=== PATIENT | male | born 1980 | race Caucasian/White ===

== ENCOUNTER 2016-09-17 14:43 | Inpatient (IN) | payer MEDICARE, OTHER ==
--- NOTE | ~2016-09-17 | HP ---
Unit #: [id number] #: [id number] Patient: GEORGE CARBALLO [id number] [place] [address] [id number] I MR#: [id number] NAME: GEORGE CARBALLO. ROOM: P184 Age: 36 Sex: M Admission Date: 09/17/2016 : 1980 Attending Physician: George Norwood M.D. Admitting Physician: George Norwood M.D. Primary Care Physician: Chin Garcia M.D. HISTORY AND PHYSICAL HISTORY OF PRESENT ILLNESS George is a 36-year-old male, admitted to [facility] because of his polysubstance abuse which includes benzodiazepines and IV heroin. PAST MEDICAL HISTORY 1. Long history of illicit substance abuse to include IV heroin and benzodiazepines. 2. History of withdrawal seizures. 3. History of MRSA. 4. High blood pressure PAST SURGICAL HISTORY 1. Tonsillectomy and adenoidectomy. 2. Extensive right hand and arm following an injury. 3. I and D of an abscess along an IV drug site. ALLERGIES IVP dye. SOCIAL HISTORY He smokes one pack per day. Drinks alcohol rarely, admits to a long history of illicit substance abuse to include benzodiazepines and IV heroin. FAMILY HISTORY Medically noncontributory. REVIEW OF SYSTEMS CONSTITUTIONAL: No fever or chills. HEENT: Denies any sore throat, ear pain or runny nose. CARDIOVASCULAR: Denies chest pain, irregular heart rhythm or palpitations. CHEST: Denies shortness of breath or cough. No hemoptysis. GASTROINTESTINAL: Denies nausea, vomiting, diarrhea or chronic constipation. ENDOCRINE: Denies history of increased thirst or urination. No recent significant weight loss or gain. GENITOURINARY: Denies dysuria, frequency, or hematuria. SKIN: Denies any rashes. HEMATOLOGIC: Denies history of increased bleeding or bruising. MUSCULOSKELETAL: Denies any hot, swollen joints. No generalized muscle pain. NEUROLOGIC: Denies problems with vision or speech. No frequent, severe headaches. No numbness, tingling or weakness in any extremities. Denies Unit #: [id number] #: [id number] Patient: GEORGE CARBALLO loss of bladder or bowel control. CURRENT MEDICATIONS Detox protocol. PHYSICAL EXAMINATION GENERAL: Alert, well-nourished, no apparent distress. VITAL SIGNS: Blood pressure 140/80, heart rate 80, respirations 16, and temperature 98.6. WEIGHT: 200 pounds. HEIGHT: 5 feet 11 inches. SKIN: Warm and dry without rash or lesion. HEENT: Normocephalic. TMs not viewed. Oral and nasal passages clear. Conjunctivae clear. PERRLA. EOMs intact. NECK: Supple without lymphadenopathy or thyromegaly. HEART: Regular rate and rhythm without murmur. LUNGS: Clear. ABDOMEN: Soft, nontender. : Not done. EXTREMITIES: No evidence of cyanosis, clubbing or edema. Moves all without focal deficit. NEUROLOGICAL: Grossly within normal limits. Cranial Nerves: II: Visual pozo are intact. III, IV AND : Extraocular movements are intact. Pupils are equal, round and reactive to light. V: Facial sensation is grossly normal. VII: Facial movements and expression are normal. VIII: Auditory acuity grossly intact. IX, X: Uvula is midline. Phonation is normal. XI: Patient shrugs shoulders and turns head normally. XII: Tongue protrudes in the midline. Sensory and Motor Function: Sensory and motor sensation is grossly normal. Motor: moves all extremities well. Coordination: Gait is normal. Deep Tendon Reflexes: Intact. IMPRESSION Psychiatric admission. RECOMMENDATIONS Psychiatric, per psychiatrist. MEDICAL I see no contraindications to participating in facility's activities. MEDICAL PROGNOSIS Good. MEDICAL CONDITION Stable. Dictated by... Brunilda Elliott P.A.-C. for Katie Summers/vero TD: 09/18/2016 07:00 JOB #: [id number] Unit #: [id number] #: [id number] Patient: GEORGE CARBALLO HISTORY AND PHYSICAL Page 1 of 1 X Brunilda Elliott HISTORY AND PHYSICAL
--- NOTE | ~2016-09-17 | PN ---
Unit #: [id number] #: [id number] Patient: GEORGE CARBALLO [id number] [facility] [address] [place] [address] [id number] I MR#: [id number] NAME: GEORGE CARBALLO. ROOM: P184 Age: 36 Sex: M Admission Date: 09/17/2016 : 1980 Attending Physician: George Norwood M.D. Admitting Physician: George Norwood M.D. Primary Care Physician: Chin Garcia M.D. [facility] PROGRESS NOTES DATE 09/19/2016 SUBJECTIVE UPDATE This is a 36-year-old white male with longstanding history of polysubstance dependence with ongoing issues of withdrawal. The patient continues to report extremely poor sleep, aches and pains, restless legs, twitching, tremors in his hands, and now he is complaining of diarrhea and vomiting. Her vital signs appeared fairly stable today. The patient was notably diaphoretic and grimacing through much of our conversation. The patient seems to still be fairly isolative to himself per staff report. No SI or issues of that nature yet. MENTAL STATUS EXAMINATION General Appearance: This is a limitedly groomed white male who appears older than stated age. Positive tremors and diaphoresis as noted. Fairly unkempt. Speech was clear and coherent but brief. Mood was dysphoric with a congruent affect. Thought process and content were fairly organized and linear. No overt evidence of psychosis. The patient denied any active SI or HI. The patient's memory was grossly intact. Associations were normal. Cognitive functioning was at baseline. He was alert and oriented x4. Insight and judgment limited. RECOMMENDATIONS We will continue the patient's admission for safety and stabilization for ongoing issues with detox (1) __ symptoms as noted above. The patient tolerating detox protocol well, simply needs more time for best effect, especially given the considerable dangerousness of his Xanax use as well as heroin complications. We will monitor, and disposition plan is ongoing. Dictated by... George Norwood M.D. Enedina TD: 09/19/2016 11:31 JOB #: [id number] Unit #: [id number] #: [id number] Patient: GEORGE CARBALLO PROGRESS NOTES Page 1 of 1 X George Norwood MD PROGRESS NOTE
--- NOTE | ~2016-09-17 | PA ---
Unit #: [id number] #: [id number] Patient: GEORGE CARBALLO [id number] [place] [address] [id number] I MR#: [id number] NAME: GEORGE CARBALLO. ROOM: P184 Age: 36 Sex: M Admission Date: 09/17/2016 : 1980 Date of Assessment: Attending Physician: George Norwood M.D. Admitting Physician: George Norwood M.D. Primary Care Physician: Chin Garcia M.D. PSYCHIATRIC ASSESSMENT LOCATION [facility], room #184, bed #1. DATE OF SERVICE 09/18/2016. INFORMANT The patient and chart both seem fairly reliable. CHIEF COMPLAINT "I need to detox." HISTORY OF PRESENT ILLNESS This is a 36-year-old white male with longstanding history of 5 plus years of daily constant IV heroin and Xanax use. The patient was vague about amounts, but he reports that it was significant every day. The heroin form apparently is IV. He says he has been through issues in terms of with withdrawal seizures in the past, but he was vague about last time happened were ever receiving medical care for. He denies ever being intubated for substance abuse either intoxication or its withdrawal. The patient denied ever being in overt treatment for detox before now. The patient could not give a specific reason for why he was seeking it. He seems fatigued and reported feeling poorly, and seen lessen agitated in evaluation process. He did able to complain of aches and pains, poor energy, headache, upset stomach, beyond that was limited in his cooperation. He did deny any active SI or thoughts of harming himself. He has been compliant per staff in terms of medications thus far. The patient complained additionally of poor sleep last night, even with the trazodone. PAST PSYCHIATRIC HISTORY According to the patient, no overt treatment inpatient around before. No history of SI, HI, or any psychosis. FAMILY HISTORY Significant for bipolar disorder in various members. He did not give more information about symptoms and/or treatments. He is unclear about chemical dependency in the family given this issue. SOCIAL HISTORY The patient is single, living at home currently with his father, has some after high-school training. He is unemployed at this time, has 3 children. Unit #: [id number] #: [id number] Patient: GEORGE CARBALLO MEDICAL HISTORY Nothing acute or chronic beyond history of withdrawal seizures per the patient's report. MEDICATION HISTORY None. ALLERGIES Include iodine contrast media. SUBSTANCE ABUSE HISTORY As noted above, no previous overt treatment according to the patient. Complications as noted above. The patient denied any substances in terms of an alcohol, bath salts spice, or other synthetics. MENTAL STATUS EXAMINATION General appearance; this is a limitedly groomed white male, appears older than stated age. Somewhat unkempt. No eye contact. Limited cooperation. Speech was clear, but brief. Mood was somewhat irritable with a congruent affect. Thought process and content were grossly organized and linear. No overt evidence of psychosis. No SI, no HI reported at this time. The patient's memory was generally intact, during the evaluation is ultimately limited. Alert and oriented x4. Cognitive function seems to be at baseline. Associations were normal. Insight and judgment are poor. ASSETS AND LIABILITIES Assets include support of his father. Liabilities include an appointments, continued substance abuse. No previous exposure to treatment. DIAGNOSES 1. Opioid dependency with withdrawal. 2. Sedative hypnotic dependency with withdrawal. PSYCHIATRIC PLAN Psychiatric plan is to continue the patient's admission for safety and stabilization, appropriate detox is in place for both opioids and benzodiazepines. The patient to be monitored carefully in controlled environment. The treatment goals being resolution of all symptoms in a manner that would be benefit the patient in the most safe appropriate manner. Discharge planning will have resolution of the symptoms in a controlled fashion with outpatient referral to community resources. Most likely the patient is not applicable for residential treatment. Estimated length of stay approximately 4 days depending on the patient's progress and response to treatment. Dictated by... George Norwood M.D. CONCEPCION/lynn TD: 09/18/2016 16:50 JOB #: [id number] Unit #: [id number] #: [id number] Patient: GEORGE CARBALLO PSYCHIATRIC ASSESSMENT Page 1 of 1 X George Norwood MD X PSYCHIATRIC ASSESSMENT
--- NOTE | ~2016-09-17 | CO ---
Unit #: [id number] #: [id number] Patient: GEORGE CARBALLO [id number] [place] [address] [id number] I MR#: [id number] NAME: GEORGE CARBALLO. ROOM: P184 Age: 36 Sex: M Admission Date: 09/17/2016 : 1980 Attending Physician: George Norwood M.D. Primary Care Physician: Chin Garcia M.D. CONSULTATION REPORT SUBJECTIVE George is a 36-year-old, admitted to [facility] because of his polysubstance abuse. In addition, he reported that he has a history of withdrawal seizure. Nursing staff reports no seizure activity during this admission. ASSESSMENT History of withdrawal seizures. PLAN The patient is currently on detox protocol, which will cover for withdrawal seizures. Dictated by... Brunilda Elliott P.A.-C. for Katie Summers/lynn TD: 09/19/2016 01:36 JOB #: [id number] CONSULTATION REPORT Page 1 of 1 X Brunilda Elliott CONSULTATION REPORT
--- NOTE | ~2016-09-17 | PN ---
Unit #: [id number] #: [id number] Patient: GEORGE CARBALLO [id number] [place] [address] [id number] I MR#: [id number] NAME: GEORGE CARBALLO. ROOM: P180 Age: 36 Sex: M Admission Date: 09/17/2016 : 1980 Attending Physician: George Norwood M.D. Admitting Physician: George Norwood M.D. Primary Care Physician: Chin Garcia M.D. [facility] PROGRESS NOTES DATE 09/20/2016 LOCATION [facility], room #184, bed #1. SUBJECTIVE UPDATE This is a 36-year-old white male with ongoing issues of significant dependency on accommodation of opiates and benzodiazepines. Patient is reporting feeling even worse today, but staff reports that he has been hallucinating overnight, restless, irritable but redirectable. Patient says he has been noticing that he is hallucinating. He says he has never had the problem happen before. The patient said he talked about seeing somebody in the room that he knew was not there. Patient seemed to be having it currently. He does report still feeling trouble in terms of aches and pains, headaches, restlessness and of course the hallucinations and mood instability, as well as occasional disorientation. He has been compliant with care per staff and a discussion was had about the need for continued compliance with treatment. Patient's vital signs are still fluctuating. MENTAL STATUS EXAM General appearance: This is a limitedly groomed white male who appears older than stated age. Poor eye contact today, possible positive for diaphoresis and tremor again. Speech was clear but brief. Mood was dysphoric, irritable with a congruent affect. Thought process and content were grossly organized and linear. No overt evidence of psychosis. At this moment positive for hallucinations overnight. Patient memory was fairly intact. Cognitive function seems to be fluctuating but baseline at the moment. Associations were normal. Alert and oriented x4. Insight and judgment is limited. ASSESSMENT AND RECOMMENDATIONS We will continue the patient's admission for ongoing issues with detox, with symptoms as noted above. Strong concern for benzodiazepines, (1) opiates with hallucinations and confusion. Staff has been encouraged to utilize Ativan as per protocol dictates. Will cue to monitor progress is ongoing. Dictated by... Unit #: [id number] #: [id number] Patient: GEORGE CARBALLO M.D. SB/halima TD: 09/20/2016 18:46 JOB #: [id number] [facility] PROGRESS NOTES Page 1 of 1 X George Norwood MD X PROGRESS NOTE
--- NOTE | ~2016-09-17 | DS ---
Unit #: [id number] #: [id number] Patient: GEORGE CARBALLO [id number] [place] [address] [id number] I MR#: [id number] NAME: GEORGE CARBALLO. ROOM: P180 Age: 36 Sex: M Admission Date: 09/17/2016 : 1980 Discharge Date: 09/21/2016 Attending Physician: George Norwood M.D. Primary Care Physician: Chin Garcia M.D. DISCHARGE SUMMARY REASON FOR ADMISSION Benzodiazepine and opiate dependency with detox for each. DIAGNOSTIC STUDIES Pertinent laboratory data, the patient had routine blood work which included a CMP, that was grossly within normal parameters, AST slightly low at 9. The patient had alcohol level that was negative. CBC that was within normal acceptable parameters. Urinalysis was ordered but never obtained because of patient cooperation issues. HOSPITAL COURSE The patient was admitted for safety and stabilization for ongoing issues with opiates and benzodiazepine dependency, placed on appropriate protocols for both. The patient reported escalating symptoms of aches, pains, tremors, diaphoresis, elevated blood pressure and pulse which all accumulate in him having acute confusion delirium, hallucinations, and seizure. On the , the patient's symptoms escalated to this point and he was felt appropriate to be set out for medical evaluation and was sent to [facility] by EMS and that happened at 2:30 on 09/20, unfortunately, shortly after arriving there the patient went AWOL despite being noted to be mentally impaired, delirious and hallucinating. Apparently, [facility] personnel notified proper authorities but the patient was not returned or found in 24-hours. Following that it was felt appropriate that the patient be discharged from overall care here at this hospital since he had not been able to be found and returned to care. Proper follow up is unable to be established and overall, the patient seemed to be deteriorating and that is why he was sent for medical clearance given his escalation of his sedative-hypnotic dependency severity. There was no evidence of SI or HI but the patient was becoming increasingly agitated with his confusion and that is another reason for his medical clearance being necessitated. DISCHARGE DIAGNOSES [place] I Sedative-hypnotic dependency with withdrawal, severe with delirium. Opiate dependency with withdrawal. [place] II [place] III [place] IV [place] V Unit #: [id number] #: [id number] Patient: GEORGE CARBALLO DISCHARGE FOLLOWUP CARE Unable to provide any as the patient is AWOL. DISCHARGE MEDICATIONS None CONDITION AT DISCHARGE Worsening. PROGNOSIS Poor. DIET AND ACTIVITY Diet is regular. Activity is as tolerated with sobriety encouraged. Dictated by... Katie Haney/vero TD: 09/22/2016 11:32 JOB #: [id number] DISCHARGE SUMMARY Page 1 of 1 X George Norwood MD X DISCHARGE SUMMARY
[~2016-09-17 14:43] MED LIST: ACEPHEN650 MG PR; ACETAMINOPHEN650 M3 PO; APAP325 MG PO; ATACAND PO; ATACAND16 MG PO; BACTRIM DS TABL1 TA1 PO; BACTROBAN22 GM TOP; BENTYL20 M1 PO; CELEBREX; CIPRO250 MG PO; DAKIN'S MODIF1000 ML TOP; DESYREL50 MG PO; DIAZEPAM PO; DOXYCYCLINE HY100 M1 PO; FLEXERIL10 MG PO; HYDROCODON-ACE1 EAC9 PO; HYDROCODONE-APA1 T30; LORTAB 10-3251 EACH PO; LORTAB 10-5001 EACH PO; LORTAB 10/500 T1 TAB PO; METHOCARBAMOL500 MG PO; MOTRIN600 M1 PO; NEURONTIN300 MG PO; NO MEDICATIONS; OXYCONTIN PO; PERCOCET 5-3251 TAB PO; PERCOCET10 PO; PROBIOTIC250 MG PO; ROXICET PO; SEROQUEL PO; SKELAXIN PO; VIBRAMYCIN100 M1 PO
[2016-09-18 12:28] LABS: BASOPHIL% 0.3 % (0-2.5); EOSINOPHIL% 0.2 % (0.0-7.0); HEMATOCRIT 39.2 % (38.0-50.0); HEMOGLOBIN 13.1 gm/dL (13.0-16.0); LYMPHOCYTE# 2.2 X10e3 (1.0-3.5); LYMPHOCYTE% 19.8 % (17.0-45.0); MEAN CELL VOLUME 86.4 FL (83-96); MEAN CORPUSCULAR HGB CONC 33.5 g/dL (30-36); MEAN PLATELET VOLUME 8.2 FL (6.5-11.5); MONOCYTE# 0.6 X10e3 (0-1.0); MONOCYTE% 5.3 % (3.0-12.0); NEUTROPHIL# 8.4 X10e3 (1.5-7.1); NEUTROPHIL% 74.4 % (40-75); PLATELET COUNT 269 X10e3 (140-420); RED BLOOD COUNT 4.53 X10e (3.90-5.60); RED CELL DISTRIBUTION WIDTH 13.4 % (11.0-15.5); WHITE BLOOD COUNT 11.2 X10e3 (4.0-10.5)
[2016-09-18 12:31] LABS: DIFF IND NO
[2016-09-18 12:51] LABS: ALBUMIN SERUM 3.9 g/dL (3.5-5.0); BILIRUBIN,TOTAL 0.8 mg/dL (0.2-2.0); BUN/CREATININE RATIO 16.66; CALCIUM SERUM 9.4 mg/dL (8.4-10.2); CREATININE SERUM 0.6 mg/dL (0.6-1.4); GLOM FILT RATE Estimated 128.5 mL/min (>60); POTASSIUM 3.6 mmol/L (3.5-5.1); PROTEIN TOTAL SERUM 7.3 g/dL (6.0-8.3)
[2016-09-19 09:45] LABS: URINE APPEARANCE CLEAR; URINE BILIRUBIN NEG (NEG); URINE BLOOD NEG (NEG); URINE COLOR YELLOW; URINE GLUCOSE NEG (NEG); URINE KETONE NEG (NEG); URINE LEUKOCYTE ESTERASE NEG (NEG); URINE NITRATE NEG (NEG); URINE PROTEIN NEG (NEG); URINE SPECIFIC GRAVITY 1.013 (1.003-1.035); URINE UROBILINOGEN 0.2 MG/DL (NEG)
[2016-09-19 09:52] LABS: AMPHETAMINE NEG (NEG); BARBITURATES NEG (NEG); BENZODIAZEPINES POS (NEG); COCAINE NEG (NEG); MARIJUANA NEG (NEG); OPIATES NEG (NEG); TRICYCLIC ANTIDEPRESSANTS NEG (NEG); U METHADONE NEG (NEG)
== END 2016-09-21 15:35 | disposition short-term general hospital (02) | DRG 897 ==
LOC: P1E 14:43 → POF 09-20 12:45 → P1E 09-20 12:47
PROVIDERS: Psychiatry & Neurology Psychiatry
PROC: HZ2ZZZZ Detoxification Services for Substance Abuse Treatment (ICD-10-PCS; principal; 2016-09-17)
DX: F11.23 Opioid dependence with withdrawal (principal); I10 Essential (primary) hypertension; Z86.14 Personal history of Methicillin resistant Staphylococcus aureus infection; F17.210 Nicotine dependence, cigarettes, uncomplicated; F13.231 Sedative, hypnotic or anxiolytic dependence with withdrawal delirium
CPT/HCPCS: 80053; 80307; 81003; 82947; 85025; 86592

== ENCOUNTER 2016-09-20 14:02 | Emergency (ER) | payer OTHER ==
--- NOTE | ~2016-09-20 | EKG ---
PATIENT: GEORGE CARBALLO UNIT #: [id number] Ventricular Rate: 68 BPM Atrial Rate: 68 BPM P-R Interval: 166 ms QRS Duration: 78 ms Q-T Interval: 382 ms QTC Calculation(Bezet): 406 ms P [place]: 64 degrees Calculated R [place]: 41 degrees Calculated T [place]: 40 degrees Diagnosis Line: Normal sinus rhythm Diagnosis Line: Normal ECG Diagnosis Line: When compared with ECG of 28-JAN-2012 01:04, Diagnosis Line: No significant change was found Diagnosis Line: Confirmed by NOBLE MATOS MD ([id number]) on Diagnosis Line: 09/21/2016 8:52:22 AM INTERPRETING MIKY CRUZ
--- NOTE | ~2016-09-20 | CT71 ---
[facility] A Service of [facility] [place] RADIOLOGY TEXT RESULTS PATIENT: GEORGE CARBALLO LOCATION: [facility] : 78 UNIT #: [id number] AGE: [address]: Teo Augustin DO SEX: M ORDER DR: [id number] [facility] [address] [place], [place] [address] [id number] MR#: [id number] Acc #: [id number] NAME: GEORGE CARBALLO : 1980 SEX: M STUDY DATE/TIME: 09/20/2016 13:41 UNIT: TITI ROOM: STUDY DESCRIPTION: CT Head Wo Contrast Attending Physician: Teo Augustin D.O. Ordering Physician: Teo Augustin D.O. Primary Care Physician: Chin Garcia M.D. MEDICAL IMAGING REPORT This report is preliminary unless electronic signature is present EXAM Head CT no contrast, 09/20/2016 PROCEDURE Axial unenhanced head CT. This CT exam was performed with one or more of the following radiation dose reduction techniques: automatic exposure control, adjustment of mA and/or kV according to patient size, and iterative reconstruction. COMPARISON None HISTORY New onset seizure today. FINDINGS Axial noncontrast images were obtained from the skull base to the vertex. Ventricular size and configuration are normal. There is no evidence of acute infarct or hemorrhage. There are no extra-axial fluid collections. No mass lesion or mass effect is seen. There are no skull fractures. IMPRESSION Normal noncontrast head CT. Dictated by... Harry Alves M.D. THIS IS AN ELECTRONICALLY VERIFIED REPORT Harry Alves M.D. at 09/20/2016 3:36 PM GERONIMO/adam TD: 09/20/2016 14:59 [facility] A Service of [facility] [place] RADIOLOGY TEXT RESULTS PATIENT: GEORGE CARBALLO LOCATION: [facility] : 78 UNIT #: [id number] AGE: [address]: Teo Augustin DO SEX: M ORDER DR: JOB #: [id number] MEDICAL IMAGING REPORT Page 1 of 1 COPY
[2016-09-20 14:38] LABS: BASOPHIL# 0.1 X10e3 (0-0.3); BASOPHIL% 0.6 % (0-2.5); EOSINOPHIL# 0.1 X10e3 (0-0.7); EOSINOPHIL% 1.4 % (0.0-7.0); HEMATOCRIT 39.4 % (38.0-50.0); HEMOGLOBIN 13.3 gm/dL (13.0-16.0); LYMPHOCYTE# 3.1 X10e3 (1.0-3.5); LYMPHOCYTE% 31.8 % (17.0-45.0); MEAN CELL VOLUME 88.4 FL (83-96); MEAN CORPUSCULAR HEMOGLOBIN 29.8 PG (28-34); MEAN CORPUSCULAR HGB CONC 33.7 g/dL (30-36); MEAN PLATELET VOLUME 8.2 FL (6.5-11.5); MONOCYTE# 0.9 X10e3 (0-1.0); MONOCYTE% 9.5 % (3.0-12.0); NEUTROPHIL# 5.5 X10e3 (1.5-7.1); NEUTROPHIL% 56.7 % (40-75); PLATELET COUNT 274 X10e3 (140-420); RED BLOOD COUNT 4.46 X10e (3.90-5.60); RED CELL DISTRIBUTION WIDTH 13.5 % (11.0-15.5); WHITE BLOOD COUNT 9.6 X10e3 (4.0-10.5)
[2016-09-20 14:44] LABS: DIFF IND NO
[2016-09-20 15:02] LABS: ALBUMIN SERUM 4.2 g/dL (3.5-5.0); ALCOHOL BLOOD <5 mg/dL (0); ALKALINE PHOSPHATASE 66 U/L (32-92); ALT (SGPT) 12 U/L (10-40); AST (SGOT) 9 U/L (10-42); BILIRUBIN, DIRECT <0.1 mg/dL (0.0-0.2); BILIRUBIN,INDIRECT 0.5 mg/dL (0.0-0.9); BILIRUBIN,TOTAL 0.6 mg/dL (0.2-2.0); BLOOD UREA NITROGEN 13 mg/dL (9-23); BUN/CREATININE RATIO 16.25; CALCIUM SERUM 9.3 mg/dL (8.4-10.2); CARBON DIOXIDE 27 mmol/L (22-31); CHLORIDE 108 mmol/L (100-111); CREATININE SERUM 0.8 mg/dL (0.6-1.4); GLOM FILT RATE Estimated 114.2 mL/min (>60); GLUCOSE FASTING 96 mg/dL (70-110); PROTEIN TOTAL SERUM 7.7 g/dL (6.0-8.3); SODIUM 142 mmol/L (135-145)
== END 2016-09-20 14:25 | disposition left against medical advice (07) ==
LOC: CED 14:02
PROVIDERS: Emergency Medicine
DX: G40.909 Epilepsy, unspecified, not intractable, without status epilepticus (principal); F19.10 Other psychoactive substance abuse, uncomplicated; Z91.041 Radiographic dye allergy status
CPT/HCPCS: 70450; 80048; 80076; 85025; 93005; 99284; G0480

== ENCOUNTER 2016-12-16 21:03 | Emergency (ER) | payer SELFPAY ==
[~2016-12-16] VITALS: Ht 182.9 cm; Wt 86.2 kg
== END 2016-12-17 00:06 | disposition left against medical advice (07) ==
LOC: CED 21:03
DX: Z53.21 Procedure and treatment not carried out due to patient leaving prior to being seen by health care provider (principal)

== ENCOUNTER 2016-12-25 12:52 | Inpatient (IN) | payer MEDICARE, MEDICAID ==
[~2016-12-25] VITALS: Ht 182.9 cm; Wt 88.5 kg
--- NOTE | ~2016-12-25 | HP ---
Unit #: [id number] #: [id number] Patient: GEORGE CARBALLO [id number] [address] [place], [place] [address] [id number] I MR#: [id number] NAME: GEORGE CARBALLO. ROOM: 67220 Age: 36 Sex: M Admission Date: 12/25/2016 : 1980 Attending Physician: Linda Holloway M.D. Primary Care Physician: Chin Garcia M.D. HISTORY AND PHYSICAL CHIEF COMPLAINT Right leg swelling. HISTORY OF PRESENT ILLNESS The patient is a 36-year-old male with a past medical history of MRSA, polysubstance abuse, hypertension, and degenerative joint disease, who presented to the emergency department for evaluation of the above. The patient states that he noticed swelling and pain involving the right leg for the past three to four days. He denies any trauma to the legs. He denies injecting drugs in that area. He denies any drainage. He states that he has had chills and undocumented fever. He denies any vomiting or diarrhea. In the emergency department, initial temperature was 97.7, pulse 78, and blood pressure 118/68. He was given vancomycin, as well as a one liter normal saline bolus. He is being admitted to [facility] for evaluation and further treatment. PAST MEDICAL HISTORY 1. Admission to [facility] April 10-2015, for right groin abscess. He underwent incision and drainage during that admission. Wound culture from April 11, 2016, grew 3+ MRSA. 2. Hypertension. 3. Degenerative joint disease. PAST SURGICAL HISTORY 1. Spinal fusion. 2. Tonsillectomy. 3. Right upper extremity surgery. 4. Right groin I and D. SOCIAL HISTORY Patient lives with his brother. He smokes a pack of cigarettes daily. He states that he uses clean needles. He reports IV drug use including heroin and methamphetamine. He also uses Xanax that is not prescribed, as well as marijuana. FAMILY HISTORY Notable for his dad having "heart problems," as well as degenerative disc disease. ALLERGIES IV dye. Unit #: [id number] #: [id number] Patient: GEORGE CARBALLO HOME MEDICATIONS None. REVIEW OF SYSTEMS A complete review of systems is negative except as indicated in the History of Present Illness. PHYSICAL EXAMINATION VITAL SIGNS: Temperature is 97.7, pulse 78, respirations 14, blood pressure 118/68, and oxygen saturation is 99% on room air. GENERAL: Patient is a male who is sleeping but wakes to voice. HEENT: Face demonstrates multifocal ulcerations/abrasions. Mucous membranes are moist. NECK: Supple. Trachea is midline. CARDIOVASCULAR: Regular rate and rhythm. LUNGS: Clear to auscultation bilaterally with no increased work of breathing. ABDOMEN: Soft and nontender with bowel sounds present in all four quadrants. EXTREMITIES: There is no pedal edema involving the left lower extremity. The right lower extremity demonstrates several abrasions/ulcerations with surrounding erythema, warmth, and tenderness to palpation involving the right lower extremity. He does have a 2+ dorsalis pedis pulse. NEUROLOGIC: Patient is awake and alert. He follows commands. PSYCHIATRIC: Mood and affect are normal. Patient is cooperative. SKIN: Skin demonstrates the previously described abnormalities. DIAGNOSTIC STUDIES LABORATORY: Complete blood count notable for hemoglobin and hematocrit of 12.5 and 36.3, respectively. Lactic acid is 1.1. Comprehensive metabolic panel notable for sodium of 134. ASSESSMENT The patient is a 36-year-old male with: 1. Right lower extremity cellulitis. The patient received vancomycin in the emergency department. 2. History of MRSA. 3. Intravenous drug use with last use being this morning. 4. Hypertension. 5. Degenerative joint disease. 6. Tobacco abuse. PLAN 1. Admit to med/surg. 2. Healthy-heart diet. 3. N.p.o. after midnight for possible surgical intervention. 4. Consult [facility] regarding right lower extremity cellulitis and possible abscess. 5. Blood cultures x2. 6. Wound culture and sensitivity. 7. Vancomycin IV. 8. Right lower extremity venous Doppler. 9. P.r.n. Tylenol. 10. P.r.n. Toradol. 11. Normal saline at 125 mL/hour. 12. P.r.n. Zofran. 13. Urine toxicology screen. Unit #: [id number] #: [id number] Patient: GEORGE CARBALLO 14. property site manager/social work consult regarding IV drug use. 15. HIV and hepatitis panel. 16. Repeat labs in the morning. 17. Additional workup and consultants based on above. 1. Dictated by Katie Kaufman/tiffanie TD: 12/25/2016 17:29 JOB #: [id number] HISTORY AND PHYSICAL Page 1 of 1 X Linda Holloway MD X HISTORY AND PHYSICAL
--- NOTE | ~2016-12-25 | US85 ---
[facility] A Service of [facility] & [facility] RADIOLOGY TEXT RESULTS PATIENT: GEORGE CARBALLO LOCATION: [facility] 242-01 : [birth year] UNIT #: [id number] AGE: [address]: COLT GREEN V SEX: M ORDER DR: [id number] [facility] [address] [place], [place] [address] [id number] I MR#: [id number] Acc #: [id number] NAME: GEORGE CARBALLO : 1980 SEX: M STUDY DATE/TIME: 12/26/2016 18:40 UNIT: [facility] ROOM: [facility] STUDY DESCRIPTION: US LE Veins Unilat or Ltd Stdy Attending Physician: Colt Green M.D. Ordering Physician: Gagan Chapin M.D. Primary Care Physician: Chin Garcia M.D. MEDICAL IMAGING REPORT This report is preliminary unless electronic signature is present EXAM Right leg vein Doppler, 12/26/2016 at 1840 hours. INDICATIONS Right lower extremity pain for 6 days. Cellulitis. TECHNIQUE Venous ultrasound examination of the right lower extremity was performed using grayscale, spectral Doppler and color flow Doppler imaging. FINDINGS The examination is negative. There is no evidence of right lower extremity deep venous thrombus from the groin to the lower calf. Visualized greater saphenous vein is also patent. IMPRESSION Negative examination. No evidence of right lower extremity DVT. Dictated by... Manish Garg Jr., M.D. THIS IS AN ELECTRONICALLY VERIFIED REPORT Manish Garg Jr., M.D. at 12/27/2016 4:12 PM KEIRA/michelle TD: 12/26/2016 23:45 JOB #: [id number] MEDICAL IMAGING REPORT Page 1 of 1 COPY
--- NOTE | ~2016-12-25 | CO ---
Unit #: [id number] #: [id number] Patient: GEORGE CARBALLO [id number] [address] [place], [place] [address] [id number] I MR#: [id number] NAME: GEORGE CARBALLO. ROOM: 242 Age: 36 Sex: M Admission Date: 12/25/2016 : 1980 Attending Physician: Jhony Parnell M.D. Primary Care Physician: Chin Garcia M.D. Consultation Date: 12/26/2016 CONSULTATION REPORT BRIEF HISTORY The patient is a 36-year-old gentleman with painful lesions in his right lower extremity. These look like boils, and he popped them and they are becoming increasingly painful. No fevers or chills. No history of trauma. PAST HISTORY Multiple drug abuse. MEDICATIONS No home medications. SOCIAL HISTORY IV drug abuse. No alcohol. Does smoke. FAMILY HISTORY Negative for GI malignancy. REVIEW OF SYSTEMS No cardiopulmonary complaints at this time. Ten systems reviewed and negative. PHYSICAL EXAMINATION GENERAL: He is awake, alert. VITAL SIGNS: Currently afebrile. Temperature 97.7. HEENT: Unremarkable. NECK: Neck is supple. No JVD. Trachea midline. LUNGS: Clear to auscultation. Bilateral breath sounds are symmetric. CARDIOVASCULAR: Regular rate and rhythm. ABDOMEN: His abdomen is soft, nontender, nondistended. I palpate no masses. No hepatosplenomegaly. EXTREMITIES: Show swelling in the right lower extremity with 2 separate lesions, each measuring approximately 2 cm in diameter with central necrosis. These are tender to exam. Erythema around the edges but no palpable fluctuance. DIAGNOSTIC STUDIES LABS: Labs show a normal white count. ASSESSMENT/PLAN Likely methicillin-resistant Staphylococcus aureus with cellulitis. Do not see an area to drain at this stage. Will treat with antibiotics and reassess. Discussed with the patient in detail. Unit #: [id number] #: [id number] Patient: GEORGE CARBALLO Dictated by... Keny Johnson M.D. TRUE/mariia TD: 12/26/2016 13:25 JOB #: [id number] CONSULTATION REPORT Page 1 of 1 X Keny Johnson MD CONSULTATION REPORT
--- NOTE | ~2016-12-25 | CR253 ---
[facility] A Service of [facility] & [facility] RADIOLOGY TEXT RESULTS PATIENT: GEORGE CARBALLO LOCATION: [facility] 242-01 : [birth year] UNIT #: [id number] AGE: [address]: COLT GREEN V SEX: M ORDER DR: [id number] [facility] [address] [place], [place] [address] [id number] I MR#: [id number] Acc #: [id number] NAME: GEORGE CARBALLO. : 1980 SEX: M STUDY DATE/TIME: 12/28/2016 14:23 UNIT: [facility] ROOM: [facility] STUDY DESCRIPTION: CR Tibia and Fibula 2 Views Rt Attending Physician: Colt Green M.D. Ordering Physician: Colt Green M.D. Primary Care Physician: Chin Garcia M.D. MEDICAL IMAGING REPORT This report is preliminary unless electronic signature is present EXAM Right tibia and fibula, AP and lateral HISTORY Leg pain and redness and cellulitis for 3 days. No injury. FINDINGS There is no evidence of fracture, dislocation, or radiopaque foreign body. IMPRESSION Normal tibia and fibula. Dictated by... Huseyin Mei M.D. THIS IS AN ELECTRONICALLY VERIFIED REPORT Huseyin Mei M.D. at 12/28/2016 11:21 PM DFL/topher TD: 12/28/2016 17:25 JOB #: [id number] MEDICAL IMAGING REPORT Page 1 of 1 COPY
--- NOTE | ~2016-12-25 | DS ---
Unit #: [id number] #: [id number] Patient: GEORGE CARBALLO [id number] [address] [place], [place] [address] [id number] I MR#: [id number] NAME: GEORGE CARBALLO ROOM: 242 Age: 36 Sex: M Admission Date: 12/25/2016 : 1980 Discharge Date: 12/28/2016 Attending Physician: Jhony Parnell M.D. Primary Care Physician: Chin Garcia M.D. DISCHARGE SUMMARY PERTINENT HISTORY AND HOSPITAL COURSE The patient is a 36-year-old man with a prior history of polysubstance abuse, degenerative joint disease who presented to the emergency room with symptoms of pain over the right leg for the past three to four days. On presentation, the patient was noted to have abrasion and ulcerations over the right lower extremity, two lesions over the right lott approximately 2 cm in diameter with central necrosis and a third lesion approximately half centimeter in diameter over the dorsum of the right foot. He was seen by surgery. He underwent regular dressing changes. DISCHARGE MEDICATIONS 1. Doxycycline 100 mg p.o. b.i.d. 2. Bactroban ointment to be applied twice daily over ulcerations. 3. Regular dressing changes twice daily over ulcerations. DISCHARGE INSTRUCTIONS 1. The patient is to follow up as an outpatient with surgery, Dr. Ricketts, in one to two weeks. 2. The patient is to continue regular dressing changes twice daily. 3. Patient refused home health services. Dictated by... Katie Samuels/jose luis TD: 12/29/2016 10:52 JOB #: [id number] DISCHARGE SUMMARY Page 1 of 1 X X DISCHARGE SUMMARY
--- NOTE | ~2016-12-25 | CR127 ---
[facility] A Service of [facility] & [facility] RADIOLOGY TEXT RESULTS PATIENT: GEORGE CARBALLO LOCATION: [facility] : [birth year] UNIT #: [id number] AGE: [address]: COLT GREEN V SEX: M ORDER DR: [id number] [facility] [address] [place], [place] [address] [id number] I MR#: [id number] Acc #: [id number] NAME: GEORGE CARBALLO. : 1980 SEX: M STUDY DATE/TIME: 12/28/2016 14:22 UNIT: [facility] ROOM: [facility] STUDY DESCRIPTION: CR Foot Complete Min 3 View Rt Attending Physician: Colt Green M.D. Ordering Physician: Colt Green M.D. Primary Care Physician: Chin Garcia M.D. MEDICAL IMAGING REPORT This report is preliminary unless electronic signature is present EXAM Right foot, 3 views HISTORY Foot pain for 3 days. No injury. FINDINGS Three views of the right foot demonstrate moderate degenerative arthritis at the first MTP joint. Bone alignment is satisfactory. No fracture or abnormal sclerosis. No dislocation. Small posterior calcaneal spur. IMPRESSION No acute findings. Moderate degenerative changes at the first MTP joint. Dictated by... Huseyin Mei M.D. THIS IS AN ELECTRONICALLY VERIFIED REPORT Huseyin Mei M.D. at 12/28/2016 11:21 PM DFL/psc TD: 12/28/2016 17:21 JOB #: [id number] MEDICAL IMAGING REPORT Page 1 of 1 COPY
[2016-12-25 14:10] LABS: BASOPHIL% 0.4 % (0-2.5); EOSINOPHIL# 0.4 X10e3 (0-0.7); EOSINOPHIL% 5.4 % (0.0-7.0); HEMATOCRIT 36.3 % (38.0-50.0); HEMOGLOBIN 12.5 gm/dL (13.0-16.0); LYMPHOCYTE# 2.6 X10e3 (1.0-3.5); LYMPHOCYTE% 31.1 % (17.0-45.0); MEAN CELL VOLUME 87.1 FL (83-96); MEAN CORPUSCULAR HGB CONC 34.5 g/dL (30-36); MEAN PLATELET VOLUME 8.3 FL (6.5-11.5); MONOCYTE# 0.9 X10e3 (0-1.0); MONOCYTE% 10.3 % (3.0-12.0); NEUTROPHIL# 4.4 X10e3 (1.5-7.1); NEUTROPHIL% 52.8 % (40-75); PLATELET COUNT 211 X10e3 (140-420); RED BLOOD COUNT 4.17 X10e (3.90-5.60); WHITE BLOOD COUNT 8.3 X10e3 (4.0-10.5)
[2016-12-25 14:17] LABS: DIFF IND NO
[2016-12-25 14:55] LABS: ALBUMIN SERUM 3.9 g/dL (3.5-5.0); BILIRUBIN, DIRECT 0.1 mg/dL (0.0-0.2); BILIRUBIN,INDIRECT 0.4 mg/dL (0.0-0.9); BILIRUBIN,TOTAL 0.5 mg/dL (0.2-2.0); BUN/CREATININE RATIO 24.28; CALCIUM SERUM 8.8 mg/dL (8.4-10.2); CREATININE SERUM 0.7 mg/dL (0.6-1.4); GLOM FILT RATE Estimated 120.6 mL/min (>60); POTASSIUM 3.9 mmol/L (3.5-5.1); PROTEIN TOTAL SERUM 7.5 g/dL (6.0-8.3)
[2016-12-25 18:49] LABS: AMPHETAMINE POS (NEG); BARBITURATES NEG (NEG); BENZODIAZEPINES NEG (NEG); COCAINE NEG (NEG); MARIJUANA POS (NEG); OPIATES POS (NEG); TRICYCLIC ANTIDEPRESSANTS NEG (NEG); U METHADONE NEG (NEG)
[2016-12-26 08:41] LABS: BASOPHIL% 0.5 % (0-2.5); EOSINOPHIL# 0.4 X10e3 (0-0.7); EOSINOPHIL% 5.2 % (0.0-7.0); HEMATOCRIT 38.7 % (38.0-50.0); HEMOGLOBIN 13.3 gm/dL (13.0-16.0); LYMPHOCYTE# 2.3 X10e3 (1.0-3.5); LYMPHOCYTE% 30.4 % (17.0-45.0); MEAN CELL VOLUME 87.3 FL (83-96); MEAN CORPUSCULAR HGB CONC 34.4 g/dL (30-36); MEAN PLATELET VOLUME 8.5 FL (6.5-11.5); MONOCYTE# 0.8 X10e3 (0-1.0); NEUTROPHIL# 4.2 X10e3 (1.5-7.1); NEUTROPHIL% 53.9 % (40-75); PLATELET COUNT 202 X10e3 (140-420); RED BLOOD COUNT 4.43 X10e (3.90-5.60); RED CELL DISTRIBUTION WIDTH 13.6 % (11.0-15.5); WHITE BLOOD COUNT 7.7 X10e3 (4.0-10.5)
[2016-12-26 08:42] LABS: DIFF IND NO
[2016-12-26 09:02] LABS: BUN/CREATININE RATIO 16.66; CALCIUM SERUM 8.7 mg/dL (8.4-10.2); CREATININE SERUM 0.6 mg/dL (0.6-1.4); GLOM FILT RATE Estimated 128.5 mL/min (>60)
[2016-12-27 06:50] LABS: BUN/CREATININE RATIO 15.71; CALCIUM SERUM 8.8 mg/dL (8.4-10.2); CREATININE SERUM 0.7 mg/dL (0.6-1.4); GLOM FILT RATE Estimated 120.6 mL/min (>60); POTASSIUM 3.5 mmol/L (3.5-5.1)
[2016-12-28] MEDS ORDERED: HYDROCODON-ACE1 EAC7 PO (17:16)
[2016-12-28] MEDS ORDERED: DOXYCYCLINE PO (17:16)
[2016-12-28] MEDS ORDERED: SODIUM CHLORI1000 ML PO (17:17)
[2016-12-28] MEDS ORDERED: BACTROBAN15 GM TOP (17:17)
[2016-12-31 16:44] LABS: HA AB IGM (HEPPAN) Nonreactive (()); HB CORE AB IGM (HEPPAN) Nonreactive (Nonreactive); HB S AG (HEPPAN) Nonreactive (Nonreactive); HEP C AB (HEPPAN) Reactive (Nonreactive)
== END 2016-12-28 17:37 | disposition home or self-care (01) | DRG 603 ==
LOC: CED 12:52 → CEDOF 16:50 → CED 17:06 → CEDOF 17:06 → C2A 17:06 → CEDOF 18:30 → C2A 18:30
PROVIDERS: Emergency Medicine; Family Medicine; Internal Medicine
PROC: 05HC33Z Insertion of Infusion Device into Left Basilic Vein, Percutaneous Approach (ICD-10-PCS; principal; 2016-12-26)
PROC: 05HB33Z Insertion of Infusion Device into Right Basilic Vein, Percutaneous Approach (ICD-10-PCS; 2016-12-26)
DX: L03.115 Cellulitis of right lower limb (principal); I10 Essential (primary) hypertension; B95.62 Methicillin resistant Staphylococcus aureus infection as the cause of diseases classified elsewhere; F17.210 Nicotine dependence, cigarettes, uncomplicated; F11.10 Opioid abuse, uncomplicated; Z86.14 Personal history of Methicillin resistant Staphylococcus aureus infection; Z91.041 Radiographic dye allergy status
CPT/HCPCS: 36415; 73590; 73630; 80048; 80074; 80076; 80202; 80307; 83605; 85025; 87040; 87522; 87806; 93971; 96365; 97162; 97166; 99284; J1650; J1885; J2270; J2405; J2550; J3370

== ENCOUNTER 2017-02-05 16:22 | Emergency (ER) | payer SELFPAY ==
[~2017-02-05] VITALS: Ht 182.9 cm; Wt 88.5 kg
--- NOTE | ~2017-02-05 | CR63 ---
[facility]. [facility] A Service of [facility] & [facility] RADIOLOGY TEXT RESULTS PATIENT: GEORGE CARBALLO LOCATION: [facility] : 78 UNIT #: [id number] AGE: [address]: Xavi Huynh MD SEX: M ORDER DR: [id number] [address] [address] [id number] E MR#: [id number] Acc #: [id number] NAME: GEORGE CARBALLO : 1980 SEX: M STUDY DATE/TIME: 02/05/2017 17:19 UNIT: SED ROOM: STUDY DESCRIPTION: CR Chest 2 View Attending Physician: Xavi Huynh M.D. Ordering Physician: Xavi Huynh M.D. Primary Care Physician: Chin Garcia M.D. MEDICAL IMAGING REPORT This report is preliminary unless electronic signature is present. EXAM PA and lateral chest. HISTORY Back pain for 4 days. No injury. FINDINGS The cardiac size and pulmonary vascularity are normal. No infiltrates or effusions. Mild hypertrophic changes mid thoracic spine. IMPRESSION No acute findings. Dictated by... Huseyin Mei M.D. THIS IS AN ELECTRONICALLY VERIFIED REPORT Huseyin Mei M.D. at 02/06/2017 2:17 PM DFL/mayuri TD: 02/06/2017 07:17 JOB #: [id number] MEDICAL IMAGING REPORT Page 1 of 1
--- NOTE | ~2017-02-05 | CR221 ---
[facility]. [facility] A Service of [facility] & [facility] RADIOLOGY TEXT RESULTS PATIENT: GEORGE CARBALLO LOCATION: [facility] : [birth year] UNIT #: [id number] AGE: [address]: Xavi Huynh MD SEX: M ORDER DR: [id number] [address] [address] [id number] E MR#: [id number] Acc #: [id number] NAME: GEORGE CARBALLO : 1980 SEX: M STUDY DATE/TIME: 02/05/2017 17:19 UNIT: SED ROOM: STUDY DESCRIPTION: CR Scapula Comp Rt Attending Physician: Xavi Huynh M.D. Ordering Physician: Xavi Huynh M.D. Primary Care Physician: Chin Garcia M.D. MEDICAL IMAGING REPORT This report is preliminary unless electronic signature is present. EXAM Right scapula 3 views HISTORY Scapula pain for 4 days. No injury. FINDINGS Three views of the right scapula are negative. Normal bone alignment. Glenohumeral and acromioclavicular joints are normal. No abnormal sclerosis. No fracture. IMPRESSION Negative. Dictated by... Huseyin Mei M.D. THIS IS AN ELECTRONICALLY VERIFIED REPORT Huseyin Mei M.D. at 02/06/2017 2:17 PM DFAndreina/minerva TD: 02/06/2017 07:25 JOB #: [id number] MEDICAL IMAGING REPORT Page 1 of 1
[~2017-02-05 16:22] MED LIST changes: +BACTROBAN15 GM TOP; +DOXYCYCLINE PO; +HYDROCODON-ACE1 EAC7 PO; +SODIUM CHLORI1000 ML PO
== END 2017-02-05 18:42 | disposition home or self-care (01) ==
LOC: SED 16:22
DX: M25.511 Pain in right shoulder (principal); F17.200 Nicotine dependence, unspecified, uncomplicated
CPT/HCPCS: 71020; 73010; 96372; 99283; J1885

== ENCOUNTER 2017-02-08 04:42 | Emergency (ER) | payer SELFPAY ==
[~2017-02-08] VITALS: Ht 182.9 cm; Wt 88.5 kg
--- NOTE | ~2017-02-08 | CT57 ---
[facility] A Service [facility] RADIOLOGY TEXT RESULTS PATIENT: GEORGE CARBALLO LOCATION: [facility] : 78 UNIT #: [id number] AGE: [address]: Teo Augustin DO SEX: M ORDER DR: [id number] [place] [id number] [facility] [place], [place] [address] [id number] E MR#: [id number] Acc #: [id number] NAME: GEORGE CARBALLO : 1980 SEX: M STUDY DATE/TIME: 02/08/2017 8:39 UNIT: [facility] ROOM: STUDY DESCRIPTION: CT Chest Wo Cont Attending Physician: Teo Augustin D.O. Ordering Physician: Teo Augustin D.O. Primary Care Physician: Chin Garcia M.D. MEDICAL IMAGING REPORT This report is preliminary unless electronic signature is present EXAM Chest CT no contrast 02/08/2017 INDICATION Back pain for 6 days, pulled muscle 2 days ago, upper back pain, left-sided pain [address] of the chest was performed. This CT examination was performed with one or more of the following radiation dose reduction techniques: automatic exposure control, adjustment of mA and/or kV according to patient size, and iterative reconstruction. COMPARISON Contrast-enhanced study 10/17/2008. FINDINGS No pleural effusion. Lungs are clear. No suspicious pulmonary nodule. Included thyroid unremarkable. No pericardial effusion. No adenopathy within limitations of noncontrast technique. Aorta unremarkable. There is beam hardening artifact due to nonstandard patient positioning. Upper abdomen demonstrates no acute finding. There is degenerative change in the thoracic spine. Chronic mild wedge deformities in the vjp-le-pqxlj thoracic spine unchanged from prior chest x-ray performed 2008. IMPRESSION Negative noncontrast CT of the chest. Lungs are clear. No effusion. Chronic mild compression deformities in the xds-jn-olusp thoracic spine unchanged from prior chest x-ray 12/28/2008. Dictated by... [facility] A Service of [facility] RADIOLOGY TEXT RESULTS PATIENT: GEORGE CARBALLO [id number] [birth year] UNIT #: [id number] AGE: [address]: Teo Augustin DO SEX: M ORDER DR: Kris Breen M.D. THIS IS AN ELECTRONICALLY VERIFIED REPORT Kris Breen M.D. at 02/09/2017 7:35 AM Masha TD: 02/09/2017 07:01 JOB #: [id number] MEDICAL IMAGING REPORT Page 1 of 1 COPY
--- NOTE | ~2017-02-08 | CT122 ---
[facility] A Service of [facility] RADIOLOGY TEXT RESULTS PATIENT: GEORGE CARBALLO LOCATION: [facility] : 79 UNIT #: [id number] AGE: [address]: Teo Augustin DO SEX: M ORDER DR: [id number] [facility] [address] [place], [place] [address] [id number] E MR#: [id number] Acc #: [id number] NAME: GEORGE CARBALLO : 1980 SEX: M STUDY DATE/TIME: 02/08/2017 8:39 UNIT: [facility] ROOM: STUDY DESCRIPTION: CT Thoracic Spine Wo Cont Attending Physician: Teo Augustin D.O. Ordering Physician: Teo Auugstin D.O. Primary Care Physician: Chin Garcia M.D. MEDICAL IMAGING REPORT This report is preliminary unless electronic signature is present EXAM Thoracic CT. HISTORY Back pain for the past 6 days in the upper thoracic area more toward the left. TECHNIQUE Thin section imaging was obtained through the thoracic spine and evaluated at bone and soft tissue windows with multiplanar reformats. This CT exam was performed with one or more of the following radiation dose reduction techniques: automatic exposure control, adjustment of mA and/or kV according to patient size, and iterative reconstruction. FINDINGS Moderate mid-thoracic degenerative disc disease is seen with an exaggerated thoracic kyphosis. Alignment is satisfactory otherwise. No thoracic fractures are seen and no destructive bone lesions are noted. The thoracic spinal canal is widely patent. Paraspinous structures are unremarkable. Posterior facets are intact. IMPRESSION Moderate mid-thoracic degenerative disc disease with exaggerated thoracic kyphosis. No acute findings. Dictated by... Manish Cheek M.D. THIS IS AN ELECTRONICALLY VERIFIED REPORT Manish Cheek M.D. at 02/10/2017 6:00 AM RLF/gz [facility] A Service of [facility] / [facility] RADIOLOGY TEXT RESULTS PATIENT: GEORGE CARBALLO LOCATION: [facility] : [birth year] UNIT #: [id number] AGE: [address]: Teo Augustin DO SEX: M ORDER DR: TD: 02/09/2017 07:02 JOB #: [id number] MEDICAL IMAGING REPORT Page 1 of 1 COPY
--- NOTE | ~2017-02-08 | CR243 ---
[facility] A Service of [facility] & [facility] / [facility] RADIOLOGY TEXT RESULTS PATIENT: GEORGE CARBALLO LOCATION: [facility] : 79 UNIT #: [id number] AGE: [address]: Teo Augustin DO SEX: M ORDER DR: [id number] [facility] [address] [place], [place] [address] [id number] E MR#: [id number] Acc #: [id number] NAME: GEORGE CARBALLO. : 1980 SEX: M STUDY DATE/TIME: 02/08/2017 6:32 UNIT: [facility] ROOM: STUDY DESCRIPTION: CR Thoracic Spine 3 Views Attending Physician: Teo Augustin D.O. Ordering Physician: Brunilda Mcdaniel A.P.R.N. Primary Care Physician: Chin Garcia M.D. MEDICAL IMAGING REPORT This report is preliminary unless electronic signature is present EXAM Thoracic series 02/08/2017 INDICATION 36-year-old male with mid and upper back pain, hurts to move, symptoms 6 days, no known injury. TECHNIQUE Three views compared with chest x-ray 12/28/2008. FINDINGS Cervicothoracic junction suboptimally visualized but grossly intact. There is degenerative disc disease in the mid thoracic spine. Mild chronic wedge deformities of mid thoracic vertebral bodies unchanged. Alignment preserved. No acute-appearing fracture. IMPRESSION Mild chronic wedge deformities in the mid thoracic spine with associated degenerative change. Findings are similar to the prior 2008 study. Dictated by... Kris Breen M.D. THIS IS AN ELECTRONICALLY VERIFIED REPORT Kris Breen M.D. at 02/09/2017 7:33 AM CIRILO/minerva TD: 02/09/2017 06:04 JOB #: [id number] MEDICAL IMAGING REPORT Page 1 of 1 COPY
--- NOTE | ~2017-02-08 | EKG ---
PATIENT: GEORGE CARBALLO UNIT #: [id number] Ventricular Rate: 79 BPM Atrial Rate: 79 BPM P-R Interval: 168 ms QRS Duration: 86 ms Q-T Interval: 374 ms QTC Calculation(Bezet): 428 ms P Somers: 78 degrees Calculated R Somers: 61 degrees Calculated T Somers: 55 degrees Diagnosis Line: Normal sinus rhythm Diagnosis Line: Normal ECG Diagnosis Line: When compared with ECG of 20-SEP-2016 13:12, Diagnosis Line: No significant change was found Diagnosis Line: Confirmed by RUIZ ESCOBAR MD ([id number]) on 02/08/2017 Diagnosis Line: 3:47:30 PM INTERPRETING MD: LUZ MARIA
[2017-02-08 06:56] LABS: POC - CKMB <1.0 ng/mL (0.0-7.9); POC - TROPONIN <0.05 ng/mL (<=0.05)
[2017-02-08 07:14] LABS: BASOPHIL# 0.1 X10e3 (0-0.3); BASOPHIL% 0.7 % (0-2.5); EOSINOPHIL# 0.1 X10e3 (0-0.7); EOSINOPHIL% 1.6 % (0.0-7.0); HEMATOCRIT 35.2 % (38.0-50.0); LYMPHOCYTE# 2.3 X10e3 (1.0-3.5); LYMPHOCYTE% 26.3 % (17.0-45.0); MEAN CELL VOLUME 87.3 FL (83-96); MEAN CORPUSCULAR HEMOGLOBIN 29.8 PG (28-34); MEAN CORPUSCULAR HGB CONC 34.1 g/dL (30-36); MEAN PLATELET VOLUME 8.3 FL (6.5-11.5); MONOCYTE% 11.3 % (3.0-12.0); NEUTROPHIL# 5.3 X10e3 (1.5-7.1); NEUTROPHIL% 60.1 % (40-75); PLATELET COUNT 261 X10e3 (140-420); RED BLOOD COUNT 4.03 X10e (3.90-5.60); RED CELL DISTRIBUTION WIDTH 13.5 % (11.0-15.5); WHITE BLOOD COUNT 8.9 X10e3 (4.0-10.5)
[2017-02-08 07:21] LABS: DIFF IND NO
[2017-02-08 07:44] LABS: URINE SOURCE CLEAN CATCH
[2017-02-08 07:51] LABS: ALBUMIN SERUM 3.6 g/dL (3.5-5.0); BILIRUBIN, DIRECT 0.1 mg/dL (0.0-0.2); BILIRUBIN,INDIRECT 0.4 mg/dL (0.0-0.9); BILIRUBIN,TOTAL 0.5 mg/dL (0.2-2.0); CALCIUM SERUM 8.9 mg/dL (8.4-10.2); CREATININE SERUM 0.7 mg/dL (0.6-1.4); GLOM FILT RATE Estimated 120.6 mL/min (>60); POTASSIUM 3.9 mmol/L (3.5-5.1); PROTEIN TOTAL SERUM 7.9 g/dL (6.0-8.3)
[2017-02-08 07:52] LABS: URINE APPEARANCE CLEAR; URINE BILIRUBIN NEG (NEG); URINE BLOOD NEG (NEG); URINE COLOR YELLOW; URINE GLUCOSE NEG (NEG); URINE KETONE NEG (NEG); URINE LEUKOCYTE ESTERASE NEG (NEG); URINE NITRATE NEG (NEG); URINE PH 5.5 (5-8); URINE PROTEIN NEG (NEG); URINE SPECIFIC GRAVITY 1.026 (1.003-1.035)
[2017-02-08 08:02] LABS: AMPHETAMINE POS (NEG); BARBITURATES NEG (NEG); BENZODIAZEPINES POS (NEG); COCAINE NEG (NEG); MARIJUANA POS (NEG); OPIATES POS (NEG); TRICYCLIC ANTIDEPRESSANTS NEG (NEG); U METHADONE NEG (NEG)
[2017-02-08 08:07] LABS: INR 1.1; PARTIAL THROMBOPLASTIN TIME 32.2 SECONDS (23.5-31.3)
[2017-02-08 09:00] LABS: CULTURE INDICATED? NO
== END 2017-02-08 11:46 | disposition left against medical advice (07) ==
LOC: CED 04:42
PROVIDERS: Emergency Medicine; Nurse Practitioner
DX: M54.6 Pain in thoracic spine (principal); F19.10 Other psychoactive substance abuse, uncomplicated; B19.20 Unspecified viral hepatitis C without hepatic coma; F17.210 Nicotine dependence, cigarettes, uncomplicated; Z91.041 Radiographic dye allergy status
CPT/HCPCS: 36415; 71250; 72072; 72128; 80048; 80076; 80307; 81003; 82150; 82553; 83690; 84484; 85025; 85379; 85610; 85730; 93005; 96374; 99284; J1170; J2270; J2405